=== PATIENT | female | born 1990 | race Caucasian/White ===

== ENCOUNTER 2020-04-20 18:51 | Emergency (ER) | payer MEDICAID ==
[~2020-04-20] VITALS: Ht 167.6 cm; Wt 66.4 kg
[2020-04-20 19:57] LABS: BASOPHILS # (AUTO) 0.05 x10^3/uL (0-0.1); BASOPHILS % (AUTO) 1 % (0-1); EOSINOPHILS # (AUTO) 0.06 x10^3/uL (0-0.4); EOSINOPHILS % (AUTO) 1 % (1-7); LYMPHOCYTES # (AUTO) 2.03 x10^3/uL (1-3.4); LYMPHOCYTES % (AUTO) 27 % (22-44); MD NO; MEAN CORPUSCULAR HEMOGLOBIN 29.8 pg (27.0-34.8); MEAN CORPUSCULAR HGB CONC 34.2 g/dL (32.4-35.8); MEAN CORPUSCULAR VOLUME 87.1 fL (80-100); MEAN PLATELET VOLUME 7.7 fL (7.4-10.4); MONOCYTES # (AUTO) 0.27 x10^3/uL (0.2-0.8); MONOCYTES % (AUTO) 4 % (2-9); NEUTROPHILS # (AUTO) 5.05 x10^3/uL (1.8-6.8); NEUTROPHILS % (AUTO) 68 % (42-75); PLATELET COUNT 262 x10^3/uL (130-400); RED BLOOD COUNT 4.61 x10^6/uL (3.82-5.3); RED CELL DISTRIBUTION WIDTH 12.7 % (9.6-15.2)
[2020-04-20 20:11] LABS: ALBUMIN 3.9 g/dL (3.4-5.0); ANION GAP 10 mmol/L (5-15); CALCIUM 8.7 mg/dL (8.5-10.1); CHLORIDE 106 mmol/L (98-107); CREATININE 0.84 mg/dL (0.55-1.02)
[2020-04-20 20:15] LABS: TROPONIN I < 0.015 ng/mL (0.000-0.045)
--- NOTE | 2020-04-20 20:17 | NUR ---
Patient presents to ER c/o dizziness with near syncope x1 week. Patient has been readjusting her BP meds for the last month and has felt difficulty concentrating since then. Patient states she had a near sycopal episode in [employer] yesterday. Patient is in NAD. Respirations even and unlabored.
[2020-04-20 20:20] LABS: HCG UR SG 1.022 (1.003-1.030); MICROSCOPIC NOT IND
[2020-04-20 21:36] VITALS: BP 121/81
--- NOTE | 2020-04-20 21:46 | NUR ---
Discharge instructions given. All questions and concerns addressed. Patient ambulatory with a steady gait. Belongings with patient.
== END 2020-04-20 21:47 | disposition home or self-care (01) ==
LOC: ED 20:30
DX: R42 Dizziness and giddiness (principal); R06.00 Dyspnea, unspecified; R00.2 Palpitations; I10 Essential (primary) hypertension; R94.31 Abnormal electrocardiogram [ECG] [EKG]
CPT/HCPCS: 36415; 71046; 80048; 81003; 81025; 82040; 84443; 84484; 85025; 85379; 93005; 99285